=== PATIENT | male | born 1995 | race African-American/Black ===

== ENCOUNTER 2016-06-07 16:11 | Emergency (ER) | payer OTHER ==
[~2016-06-07 16:11] MED LIST: GLUCOMETER XX; GLUCOMTESTSTRIPS XX; INSU-92; INSU100V2 SQ; LEVEMIR SQ
[2016-06-07 16:16] VITALS: BP 131/76; PULSE 112; RESP 20; TEMP 98.5; O2SAT 94
[2016-06-07 17:02] VITALS: PULSE 105; O2SAT 96
--- NOTE | 2016-06-07 17:37 | PD ---
HPI Chief Complaint: Cold / Flu Symptoms Time Seen by Provider: 17:34 Travel History International Travel<30 days: No Contact w/Intl Traveler<30days: No Traveled to known affect area: No History of Present Illness HPI 21-year-old male presents to the emergency department for evaluation of cough, congestion, nonproductive cough, intermittent wheezing and shortness of breath this started 1 week ago. He states this occurs this time every year. He states that her normally gets inhaler and steroids. Patient is a type I diabetic. He states his blood sugars normally run between 130 and 150. The patient is aware that steroids to elevate his blood sugar and states that he knows to adjust for this. Patient denies any fevers. No abdominal pain. No vomiting. No other complaints. PFSH Past Medical History Autoimmune Disease: No Anxiety: No Depression: No Cancer: No Cardiovascular Problems: Yes (heart murmur) High Cholesterol: Yes Diabetes: Yes (dx at age 14yrs.) Endocrine: Yes Genitourinary: No Musculoskeletal: No Psychiatric: No Reproductive: No Respiratory: Yes (seasonal allergies) Seizures: Yes (at age 17yrs from blood sugar being low) Sickle Cell Disease: No Social History Alcohol Use: Yes (OCC) Tobacco Use: Yes (OCC) Substance Use: Yes (marijuana every day.) Allergies-Medications (Allergen,Severity, Reaction): Coded Allergies: No Known Allergies (Unverified , 06/07/16) Reported Meds & Prescriptions Reported Meds & Active Scripts Active Review of Systems Except as stated in HPI: all other systems reviewed are Neg Physical Exam Narrative GENERAL: Well-developed well-nourished male patient, ambulatory. Afebrile. SKIN: Warm and dry. HEAD: Normocephalic. Atraumatic. EYES: No scleral icterus. No injection or drainage. NECK: Supple, trachea midline. No JVD or lymphadenopathy. CARDIOVASCULAR: Regular rate and rhythm without murmurs, gallops, or rubs. RESPIRATORY: Breath sounds equal bilaterally. No accessory muscle use. Expiratory wheezes noted throughout. GASTROINTESTINAL: Abdomen soft, non-tender, nondistended. MUSCULOSKELETAL: No cyanosis, or edema. BACK: Nontender without obvious deformity. No CVA tenderness. Data Data Last Documented VS Vital Signs Date Time Temp Pulse Resp B/P Pulse Ox O2 Delivery O2 Flow Rate FiO2 3/25/17 17:02 105 96 06/07/16 16:16 98.5 20 131/76 Room Air Orders Chest, Single Ap (06/07/16 ) Prednisone (Deltasone) (06/07/16 17:45) Albuterol-Ipratropium Neb (Duoneb Neb) (06/07/16 17:45) [facility] Medical Decision Making Medical Screen Exam Complete: Yes Emergency Medical Condition: Yes Medical Record Reviewed: Yes Interpretation(s) chest x-ray - CONCLUSION: No acute disease. No significant change has occurred. Differential Diagnosis URI versus pneumonia versus bronchitis Narrative Course 21-year-old male presents to the emergency department for evaluation of cold symptoms for one week. Upon exam, extra wheezes are noted throughout. Patient states this happens this time every year he usually gets inhaler and steroids. Patient is type I diabetic. He is well aware that steroids to raise his blood sugar. He states he knows to adjust his insulin for this. Patient is given DuoNeb 2 and prednisone 40 mg by mouth. Chest x-ray is ordered and pending. Chest x-ray shows no acute disease. Patient will be discharged prescription for albuterol inhaler, prednisone and azithromycin. He is instructed to follow up with his primary care doctor. He is to return for any acute worsening of symptoms. Patient is agreeable. Diagnosis Primary Impression: Upper respiratory infection, acute Referrals: Primary Care Physician call for appointment Patient Instructions: General Instructions, Upper Respiratory Infection (ED) Additional Instructions: Use albuterol inhaler as directed as needed for shortness of breath/wheezing. Take prednisone as directed. Start this tomorrow. Monitor blood sugars closely as this can raise your blood sugar. Take azithromycin as directed until gone. Follow-up with your primary care physician. Return to the emergency department for any acute worsening of symptoms. Med/Other Pt SpecificInfo: Prescription(s) given Scripts Azithromycin (Zithromax Z-Darrin)250 Mg [id number] Mg PO DIRECTED #1 DSPK Ref 0 500 MG (2 tabs) day 1, then 1 tab days 2-5. Prov:Trina Mejia 06/07/16 Prednisone 20 Mg Tab40 Mg PO DAILY 3 Days Ref 0 Prov:Trina Mejia 06/07/16 Albuterol 18 GM Inh (Ventolin Hfa 18 GM Inh)90 Mcg/Act Aer1 Puff INH Q4H PRN ( SHORTNESS OF BREATH) #1 INHALER Ref 0 Prov:Trina Mejia 06/07/16 Disposition: 01 DISCHARGE HOME Condition: Stable Trina Mejia Jun 07, 2016 17:37
[2016-06-07] MEDS: RESP: ALBUTEROL 2.5 MG/IPRATROPIUM 0.5 MG NEB (SCH) INH ×2 (17:45→17:46)
[2016-06-07] MEDS ORDERED: predniSONE 20 MG TAB PO ONE (17:45)
--- NOTE | 2016-06-07 17:58 | RADRPT ---
EXAM DATE/TIME: 06/07/2016 17:36 [facility] COMPARISON: CHEST SINGLE AP, September 19, 2015, 15:52. INDICATIONS : Shortness of breath. MEDICAL HISTORY : Asthma. SURGICAL HISTORY : None. ENCOUNTER: Initial ACUITY: 4 - 6 days PAIN SCORE: 0/10 LOCATION: Bilateral chest FINDINGS: A single view of the chest demonstrates the lungs to be symmetrically aerated without evidence of mas s, infiltrate or effusion. The cardiomediastinal contours are unremarkable. Osseous structures are intact. CONCLUSION: No acute disease. No significant change has occurred. Justino Mackenzie MD on June 07, 2016 at 17:56 Board Certified Radiologist. This report was verified electronically.
[2016-06-07] MEDS ORDERED: PRED20 PO (18:03)
[2016-06-07] MEDS ORDERED: ZITHTAB PO (18:03)
[2016-06-07] MEDS ORDERED: VENTAER INH (18:03)
== END 2016-06-07 18:27 | disposition home or self-care (01) ==
LOC: NEPB 16:11
DX: J06.9 Acute upper respiratory infection, unspecified (principal); E10.9 Type 1 diabetes mellitus without complications; F12.90 Cannabis use, unspecified, uncomplicated; Z79.4 Long term (current) use of insulin; Z72.0 Tobacco use
CPT/HCPCS: 71010; 94640; 94664; 99283; J7512